=== PATIENT | male | born 2000 | race Caucasian/White ===

== ENCOUNTER 2023-05-21 09:36 | Emergency (ER) | payer MEDICAID, SELFPAY ==
[2023-05-21 09:45] VITALS: BP 143/91; PULSE 74; RESP 16; TEMP 37.2; O2SAT 99; BMI 24.3
--- NOTE | 2023-05-21 10:11 | CT_ITS ---
WS: [id number] CT ABDOMEN AND PELVIS WITH CONTRAST HISTORY: Abdominal and epigastric pain. Nausea and vomiting. TECHNIQUE: Imaging performed of the abdomen and pelvis with IV contrast. Single phase imaging of the abdomen. Coronal and sagittal reformats are submitted. All CT scans at [facility] use at [address] one of these dose optimization techniques: automated exposure control; mA and/or kV adjustment per patient size (includes targeted exams where dose is matched to clinical indication); or iterative re construction. IV CONTRAST: Omnipaque 350; 100 mL IV. Oral contrast: No DLP: 433.32 mGy.cm COMPARISON: None available. Lower thorax: Lung bases are clear. Heart is normal size. No hiatal hernia. Liver/biliary system: Normal size with no intrahepatic dilatation. Tiny focus of low-attenuation in t he anterior liver may be a small tiny cyst or hemangioma. This is too small to characterize. Gallbladder: Normal. No gallstones or wall thickening. No pericholecystic fluid. Pancreas: Normal size pancreas and pancreatic duct. No adjacent inflammation. Spleen: Normal size spleen. No mass or infarct. Adrenal glands: Normal. Right kidney: Normal. Left kidney: Normal. Aorta: Normal. Lymphadenopathy: None. Free fluid: None. GI tract: Mildly distended stomach with fluid. Slight increased amount of fluid in the mid to distal small bowel with no obstruction. There is also mild fecalization within the distal small bowel loops. The appendix is normal. No colon obstruction. Abdominal wall: Unremarkable abdominal wall. No hernia. Pelvis: No free fluid or adenopathy within the pelvis. Bones: Unremarkable. IMPRESSION: 1. Fluid distention with associated mild fecalization in the distal small bowel. These findings sugg est a mild long-term obstruction. Although no strictures are identified the possibility of an inflamm atory stricture involving the terminal ileum should be considered. At this time there is no inflammat ion and no free fluid or free air. 2. Normal appendix. 3. Mild fluid distention of the stomach.
--- NOTE | 2023-05-21 10:11 | W.ED.ABDPA2 ---
HPI - Abdominal Pain General: Chief Complaint: Abdominal Pain Stated Complaint: abdomin pain, N/V/D Time Seen by Provider: 05/21/23 09:48 Source: patient Mode of arrival: ambulatory Limitations: no limitations History of Present Illness: 22-year-old male states over the last 2 to 3 months he has been having intermittent abdominal pains. States it is diffuse but worse pains in his epigastric region. States not been seen for this in the past states he started having severe pain at 3 AM. Had some vomiting with this and nausea denies any fevers denies any worsening proving factors Associated Symptoms: Reports nausea and vomiting; Denies chills, diarrhea, dysuria and fever(s) Review of Systems Const: Denies: fever(s), chills, body aches or change in appetite ENMT: Denies: throat pain or dental pain Card: Denies: chest pain Resp: Denies: dyspnea GI: Reports: abdominal pain, nausea and vomiting; Denies: diarrhea : Denies: dysuria Musc: Denies: neck pain or back pain Skin/Breast: Denies: rash Neuro: Denies: headache(s) PFSH ED PFSH: Social History Smoking and tobacco/nicotine status: current every day tobacco/nicotine user Alcohol intake: current Substance/Drug Use: never Lives independently: Yes Marital status: Do you think of yourself as: Straight/Heterosexual Current gender identity: Male Physical Exam Const: COMMON NORMALS: no acute distress, patient oriented x3 and healthy appearing HENMT: COMMON NORMALS: normocephalic and atraumatic HEAD & SCALP: normocephalic and atraumatic Eye: COMMON NORMALS: conjunctivae normal CONJUNCTIVA: Yes conjunctivae normal Neck/C-Spine: COMMON NORMALS: full ROM and supple Chest: COMMONS NORMALS: normal inspection of the chest Resp: COMMON NORMALS: normal respiratory effort Cardio: COMMON NORMALS: regular rate, regular rhythm and No murmurs present (Cardio) RATE: regular rate RHYTHM: regular rhythm GI: COMMON NORMALS: Normal to inspection, nondistended, normoactive bowel sounds present, Soft to palpation and no masses PALPATION: Yes Soft to palpation OTHER: Diffuse tenderness noted Extremity: COMMON NORMALS: normal to inspection and full ROM Neuro: COMMON NORMALS: patient oriented x3, moves all extremities and no focal motor deficits Psych: COMMON NORMALS: mental status grossly normal, Normal thought process present and cooperative THOUGHT PROCESS: Normal thought process present Skin: COMMON NORMALS: no rashes or lesions noted and no wounds GENERAL SKIN EXAM: no rashes or lesions noted Course Vital Signs: Vital signs: Vital Signs Temperature 98.9 F 05/21/23 09:45 Pulse Rate 78 05/21/23 10:14 Respiratory Rate 16 05/21/23 10:26 Blood Pressure 129/85 05/21/23 10:14 Pulse Oximetry 100 05/21/23 10:26 Oxygen Delivery Me thod Room Air 05/21/23 10:17 MDM - Abdominal Pain Medical Decision Making 22-year-old male presents here with ongoing abdominal pain CT showed no acute findings did inform them of the CT findings he states that he sees his PCP tomorrow to get a referral to [facility] I did inform that he does need an EGD we will place him on Zofran and Protonix return if worsening. Medical Records I reviewed the patient's medical records. Lab Data I reviewed the patient's lab results. 05/21/23 10:15 05/21/23 10:15 Labs/Radiology: Laboratory Results WBC 13.27 10^3/uL (3.29-11.43) H 05/21/23 10:15 RBC 5.37 10^6/uL (3.85-5.65) 05/21/23 10:15 Hgb 16.60 g/dL (11.27-16.99) 05/21/23 10:15 Hct 49.4 % (37-53) 05/21/23 10:15 MCV 92.0 fl (82-101) 05/21/23 10:15 MCH 30.9 pg (27-33) 05/21/23 10:15 MCHC 33.6 g/dL (30-55) 05/21/23 10:15 RDW 12.1 % (12.1-15.1) 05/21/23 10:15 Plt Count 252 10^3/cmm (157-399) 05/21/23 10:15 MPV 10.0 fL (7.4-10.4) 05/21/23 10:15 Neut % (Auto) 81.6 % 05/21/23 10:15 Lymph % (Auto) 12.9 % 05/21/23 10:15 [place] % (Auto) 4.1 % 05/21/23 10:15 Eos % (Auto) 0.9 % 05/21/23 10:15 Baso % (Auto) 0.3 % 05/21/23 10:15 Neut # (Auto) 10.83 10^3/uL (1.8-7.7) H 05/21/23 10:15 Lymph # (Auto) 1.7 10^3/uL (0.8-4.8) 05/21/23 10:15 [place] # (Auto) 0.5 10^3/uL (0.2-0.9) 05/21/23 10:15 Eos # (Auto) 0.1 10^3/uL (0.0-0.8) 05/21/23 10:15 Baso # (Auto) 0.0 10^3/uL (0.0-0.1) 05/21/23 10:15 Nucleated RBC % (auto) 0 % 05/21/23 10:15 Nucleated RBCs # 0.0 /100WBC 05/21/23 10:15 Sodium 142 mmol/L (136-145) 05/21/23 10:15 Potassium 4.6 mmol/L (3.5-5.1) 05/21/23 10:15 Chloride 106 mmol/L (98-107) 05/21/23 10:15 Carbon Dioxide 26 mmol/L (22-29) 05/21/23 10:15 Anion Gap 14.6 (5-19) 05/21/23 10:15 BUN 10 mg/dL (6-20) 05/21/23 10:15 Creatinine 0.8 mg/dL (0.7-1.2) 05/21/23 10:15 GFR Calculation 118.8 mL/min (90-130) 05/21/23 10:15 Glucose 133 mg/dL (65-115) H 05/21/23 10:15 Calculated Osmolality 295 mOsm/kg (285-295) 05/21/23 10:15 Calcium 9.8 mg/dL (8.5-10.5) 05/21/23 10:15 Total Bilirubin 0.4 mg/dL (0.15-1.2) 05/21/23 10:15 AST 19 U/L (0-40) 05/21/23 10:15 ALT 45 U/L (0-41) H 05/21/23 10:15 Alkaline Phosphatase 81 U/L (40-130) 05/21/23 10:15 Total Protein 7.2 g/dL (6.6-8.7) 05/21/23 10:15 Albumin 4.8 g/dL (3.5-5.2) 05/21/23 10:15 Globulin 2.4 g/dL (1.3-4.6) 05/21/23 10:15 Lipase 40 U/L (13-60) 05/21/23 10:15 Urine Color Yellow (Yellow) 05/21/23 09:38 Urine Appearance Clear (CLEAR) 05/21/23 09:38 Urine pH 6 (5-7) 05/21/23 09:38 Ur Specific [place] 1.020 (1.005-1.030) 05/21/23 09:38 Urine Protein Neg (Negative) 05/21/23 09:38 Urine Glucose (UA) Norm (Normal) 05/21/23 09:38 Urine Ketones 1+ (Negative) H 05/21/23 09:38 Urine Blood Neg (Negative) 05/21/23 09:38 Urine Nitrate Negative (Negative) 05/21/23 09:38 Urine Bilirubin Neg (Negative) 05/21/23 09:38 Urine Urobilinogen Norm mg/dL (Negative) 05/21/23 09:38 Ur Leukocyte Esterase Negative (Negative) 05/21/23 09:38 All radiology interpretation(s) finalized by discharge Discharge Plan Discharge Patient Disposition: Home Clinical Impression: Abdominal pain Condition: Stable Prescriptions: New Protonix 40 mg tablet,delayed release (DR/EC) 40 mg PO DAILY Qty: 60 0RF ondansetron 4 mg tablet,disintegrating 4 mg PO Q6H PRN (Reason: nausea and vomiting) Qty: 14 0RF No Action pantoprazole 40 mg tablet,delayed release (DR/EC) 40 mg PO BID PRN (Reason: Acid Reflux) Men's Multivitamin 400-20-300 mcg Tablet 1 tab PO DAILY Discharge Orders: Discharge ED (Routine); Ordered 05/21/23 Ordered By: Filippo Ram Referrals: Thomas Devine DO [Physician] - 1-3 days Discharge Diet: Advance as tolerated Discharge Activity: Resume usual activity Patient Instructions: Abdominal Pain (ED) Coding Level of Care Code ED [employer] 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
[2023-05-21 10:14] VITALS: BP 129/85; PULSE 78; RESP 17; O2SAT 100
[2023-05-21 10:17] VITALS: O2SAT 100
[2023-05-21 10:22] LABS: Basophils % 0.3 %; Eosinophils # 0.1 10^3/uL (0.0-0.8); Eosinophils % 0.9 %; Hematocrit 49.4 % (37-53); Lymphocytes # 1.7 10^3/uL (0.8-4.8); Lymphocytes % 12.9 %; Mean Corpuscular HGB Conc 33.6 g/dL (30-55); Mean Corpuscular Hemoglobin 30.9 pg (27-33); Monocytes # 0.5 10^3/uL (0.2-0.9); Monocytes % 4.1 %; Neutrophils # 10.83 10^3/uL (1.8-7.7); Neutrophils % 81.6 %; Nucleated Red Blood Cells % 0 %; Platelet Count 252 10^3/cmm (157-399); Red Blood Count 5.37 10^6/uL (3.85-5.65); Red Cell Distribution Width 12.1 % (12.1-15.1); White Blood Count 13.27 10^3/uL (3.29-11.43)
[2023-05-21 10:22] LABS: Add Urine Microscopic? NO; Charge for UA Resulting for Rev
[2023-05-21] MEDS: lidocaine 2% viscous 15 ML, aluminum-mag hydrox-simethicon 30 ML, sucralfate oral liq 1 GM PO (10:22)
[2023-05-21] MEDS: ondansetron 2 mg/ML SDV 2 mL 4 MG IVP (10:23)
[2023-05-21 10:26] VITALS: RESP 16; O2SAT 100
[2023-05-21] MEDS: morphine 4 mg/mL SDV 1 mL IVP (10:26)
[2023-05-21 10:31] LABS: Bilirubin Urine Neg (Negative); Blood Urine Neg (Negative); Glucose Urine UA Norm (Normal); Ketones Urine 1+ (Negative); Leukocyte Esterase Urine Negative (Negative); Nitrate Urine Negative (Negative); Protein Urine Neg (Negative); Urine Appearance Clear (CLEAR); Urine Color Yellow (Yellow); Urobilinogen Urine Norm (Negative); pH Urine 6 (5-7)
[2023-05-21 10:36] LABS: Alanine Aminotransferase 45 U/L (0-41); Albumin Level 4.8 g/dL (3.5-5.2); Alkaline Phosphatase 81 U/L (40-130); Anion Gap 14.6 (5-19); Aspartate Amino Transferase 19 U/L (0-40); Blood Urea Nitrogen 10 mg/dL (6-20); Calcium 9.8 mg/dL (8.5-10.5); Carbon Dioxide 26 mmol/L (22-29); Chloride 106 mmol/L (98-107); Globulin 2.4 g/dL (1.3-4.6); Glomerular Filtration Rate 118.8 mL/min (90-130); Glucose 133 mg/dL (65-115); Lipase 40 U/L (13-60); Osmolality Calculated 295 mOsm/kg (285-295); Potassium 4.6 mmol/L (3.5-5.1); Sodium 142 mmol/L (136-145); Total Bilirubin 0.4 mg/dL (0.15-1.2); Total Protein 7.2 g/dL (6.6-8.7)
[2023-05-21] MEDS: iohexol 350 mg/mL 500 mL Btl (per mL) IV (10:42)
--- NOTE | 2023-05-21 11:33 | DCPLANNER ---
Referral was sent to Dr. Devine on 05/21 at 4224. Clinic to contact patient.,
== END 2023-05-21 11:59 | disposition home or self-care (01) ==
PROVIDERS: Emergency Provider Emergency Medicine
DX: R10.9 Unspecified abdominal pain (principal); Z72.0 Tobacco use
CPT/HCPCS: 74177; 80053; 81003; 83690; 85025; 96374; 96375; 99285; J2270; J2405; Q9967